=== PATIENT | female | born 1935 | race Caucasian/White ===

== ENCOUNTER 2021-02-13 09:48 | Emergency (ER) | payer OTHER ==
[~2021-02-13] VITALS: Ht 165.1 cm; Wt 108.9 kg
[~2021-02-13 09:48] MED LIST: ALEVE220 MG; ASPI325 PO; ATOR20 PO; ETOD400 PO; LIRA0.6P; LISI20 PO; LOSA25 PO; LOVA40 PO; NAPR220 PO
[2021-02-13] MEDS ORDERED: IBUP600 PO (10:01)
[2021-02-13] MEDS ORDERED: OXYC5 (10:02)
[2021-02-13 10:33] LABS: BASOPHILS ABSOLUTE AUTO 0.01 K/mm3 (0.00-0.23); BASOPHILS PERCENT AUTO 0 % (0-2); EOSINOPHILS ABSOLUTE AUTO 0.03 K/mm3 (0.00-0.68); EOSINOPHILS PERCENT AUTO 1 % (0-6); Hematocrit 38.7 % (33.0-51.0); Hemoglobin 12.7 g/dL (11.5-16.0); IMMATURE GRAN ABSOLUTE AUTO 0.01 K/mm3 (0.00-0.10); IMMATURE GRAN PERCENT AUTO 0 % (0-1); LYMPHOCYTES ABSOLUTE AUTO 0.95 K/mm3 (0.84-5.20); LYMPHOCYTES PERCENT AUTO 25 % (21-46); MONOCYTES ABSOLUTE AUTO 0.44 K/mm3 (0.16-1.47); MONOCYTES PERCENT AUTO 12 % (4-13); Mean Corpuscular HGB 28.7 pg (26.0-34.0); Mean Corpuscular HGB Conc 32.8 g/dL (31.5-36.5); Mean Corpuscular Volume 87 fL (80-100); Mean Platelet Volume 11.1 fL (9.1-12.4); NEUTROPHILS ABSOLUTE AUTO 2.34 K/mm3 (1.96-9.15); NEUTROPHILS PERCENT AUTO 62 % (41-73); Platelet Count 144 K/mm3 (150-400); RDW Coefficient Variation 13.8 % (11.7-14.2); RDW Standard Deviation 44.5 fL (35.1-46.3); Red Blood Cell Count 4.43 M/mm3 (3.80-5.20); White Blood Cell Count 3.78 K/mm3 (4.00-11.30)
[2021-02-13 10:41] LABS: Source, Urine Clean Catch
[2021-02-13 10:44] LABS: Appearance, Urine Clear (Clear); Bilirubin, Urine Neg (Neg); Blood, Urine 3+ (Neg); Color, Urine Yellow (P-Yellow); Glucose Qualitative, Urine Neg (Neg); Ketones, Urine Neg (Neg); Leukocyte Esterase, Urine 3+ (Neg); Nitrite, Urine Neg (Neg); Protein, Urine Neg (Neg); Urobilinogen, Urine NORM (Normal)
[2021-02-13 10:50] LABS: Albumin, Blood 3.7 g/dL (3.4-5.0); Bilirubin, Total 0.3 mg/dL (0.1-1.0); Bun/Creatinine Ratio 23.9 (12.0-20.0); Calcium, Blood 9.3 mg/dL (8.5-10.1); Creatinine, Blood 1.09 mg/dL (0.40-1.00); Globulin, Blood 3.7 g/dL (2.2-4.0); Potassium, Blood 4.3 mmol/L (3.5-5.5); Total Protein, Blood 7.4 g/dL (6.4-8.2)
[2021-02-13 11:06] LABS: Bacteria Few /hpf; Squamous Epithelial Cells Mod /hpf (Few)
[2021-02-13] MEDS ORDERED: CEFD300 PO ×2 (14:48→14:49)
== END 2021-02-13 14:37 | disposition home or self-care (01) ==
LOC: ER 09:48
PROVIDERS: Emergency Medicine
DX: R53.1 Weakness (principal); J18.9 Pneumonia, unspecified organism; N39.0 Urinary tract infection, site not specified; J44.0 Chronic obstructive pulmonary disease with (acute) lower respiratory infection; Z79.899 Other long term (current) drug therapy; Z87.891 Personal history of nicotine dependence
CPT/HCPCS: 36415; 71045; 80053; 81001; 83880; 84484; 85025; 87077; 87086; 87147; 87186; 93005; 93010; 94640; 96365; 97162; 97530; 99285-25; J0696

== ENCOUNTER → 2022-07-22 | Outpatient (CLI) | payer OTHER ==
[~2022-07-22] MED LIST changes: +CEFD300 PO; +IBUP600 PO; +OXYC5
== END ==
LOC: LAB SHORT 10:34 → LAB 10:34
DX: N39.0 Urinary tract infection, site not specified (principal)
CPT/HCPCS: 87086